=== PATIENT | female | born 1955 | race Caucasian/White ===

== ENCOUNTER 2024-04-18 11:17 | Oncology outpatient (recurring) (ONCR) | payer MEDICARE, MEDICAID, SELFPAY ==
--- NOTE | 2024-03-27 15:53 | N.ONRAD NP_ITS ---
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 Here to address postoperative radiation treatment. Radiotherapy to date: Summary > No prior radiation therapy. Chief Complaint / History of Present Illness: She noted a small mass superior left breast that grew over months from pea to tennis ball size. No sxs . Initially she could not get mammography. Mammography finally done 01/01/2024 4 cm oval mass indeterminate in nature. US recommended. US left breast 01/01/2024 4.2 cm complex cyst in left breast corresponding to mammogram. US Bx 01/21/2024 atypical papillary ductal hyperplasia. Segmental breast resection 02/13/2024 Low grade encapsulated papillary carcinoma resected with negative margins measuring 4.2 x 3.5 x 2.8 cm ER positive at 81.8%, AK positive at 71.15. Doing well post-op . No med onc assessment as yet to address adjuvant endocrine treatment. Lives independently and sharing a home with but they are living in separate parts of the house. Current Medications: aspirin, Celebrex, Emgality, Ibuprofen, levocetirizine,, lovastatin, metropolol, MS Contin, Oxycodone, Protonix, Imitrex, Zanaflex Ventolin inhaler, Allergies: Meloxicam Medical History: No history of collagen vascular disease. No previous radiation therapy. COPD, DJD, sleep apnea, deafness, hypertension, migraine QUIGLEY, dyslipidemia, Surgical History: D and C, hip arthroplasty, inner ear surgery, C section x 2 , shoulder surgery. Family History: No malignancy known in family Social History: from , they live in separate parts of a shared home. 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 No cig or alcohol use. 4 grown children. Current Complaints / Review of Systems: . Vital Signs: Performed on 03/27/2024 12:37 PM BMI - 29.957 kg/m2 (high), Height - 66 in, Weight - 185.6 lbs, Temperature - 96.6 f, Pulse - 79 /min, Respiration - 16 /min, O2 Sat - 98 %, Pain - 0, Fatigue - 0 and BP - 99/ 68 mm(hg). Physical Exam: Alert ,Edentulous with dentures. hard of hearing. No adenopathy, Arms full range of motions. No arm edema. Breast unremarkable supple, Left breast incision well healed. Performance Status: 1 Pathology: see HPI Lab: None Imaging: See HPI Impression:St II (T2 N0 M0) encapsulated papillary carcinoma. Fully excised. Recommend 40 Gy whole breast treatment in 15 fractions with no boost. Following treatment she should see med onc to consider adjuvant hormonal treatment. Discussed with patient. Plan: Signed by: 03/27/2024 3:52:56 PM <<Signature on File>> Time spent with patient: CPT Code: CPT Code:
--- NOTE | 2024-04-15 14:20 | ONCRAD TMN_ITS ---
Radiation Oncology Weekly Treatment Management Patient: Seema Rock MR#: [id number] : 1955 Attending Physician: Dr. Gaby Escalante Date of Service: 04/15/2024 Fractions: 3 out of 15 Referring Physician(s) : Diagnosis: C50.812 - Malignant neoplasm of overlapping sites of left female breast, Diagnosed 03/27/2024 (Active) Radiotherapy to date: Course: LT Breast 2023, Treatment Site: LT Breast, Ref. ID: CTV, Energy: 6X, Dose/Fx (cGy): 266.7, #Fx: 3 / 15, Dose Correction (cGy): 0, Total Dose Delivered (cGy): 800, Start Date: 04/10/2024, Elapsed Days: 5 Reason for visit: The patient is being seen today as part of their regularly scheduled weekly on treatment visits to assess for acute toxicities from radiotherapy. Review of Systems: Patient has noticed no changes Vital Signs: Performed on 04/15/2024 2:02 PM BMI - 29.892 kg/m2 (high), Height - 66 in, Weight - 185.2 lbs, Temperature - 96.2 f, Pulse - 65 /min, Respiration - 16 /min, O2 Sat - 97 %, Pain - 0, Fatigue - 2 and BP - 145/ 84 mm(hg)(high/). Physical Exam: No changes on exam Imaging: Radiation therapy imaging related to accurate target localization (i.e. KV, MV and CBCT) was reviewed. Appropriate changes, if any, were made to ensure treatment accuracy. Plan: Will continue with her treatments. She will continue to use aloe vera gel twice a day. Signed by: Dr. Gaby Escalante 04/15/2024 2:19:31 PM
== END 2024-04-18 23:59 | disposition home or self-care (01) ==
PROVIDERS: Visit Provider Radiology Radiation Oncology
DX: Z51.0 Encounter for antineoplastic radiation therapy (principal); C50.812 Malignant neoplasm of overlapping sites of left female breast
CPT/HCPCS: 77290; 77295; 77300; 77334; 77336; 77412; 77417; 99024; 99205

== ENCOUNTER 2024-05-01 13:17 | Oncology outpatient (recurring) (ONCR) | payer MEDICARE, MEDICAID, SELFPAY ==
--- NOTE | 2024-04-22 13:54 | ONCRAD TMN_ITS ---
Radiation Oncology Weekly Treatment Management Patient: Pranav Barnhart MR#: [id number] : 1955> Attending Physician: Dr. Gaby Escalante Date of Service: 04/22/2024 Fractions: 8 out of 15 Referring Physician(s) : Diagnosis: C50.812 - Malignant neoplasm of overlapping sites of left female breast, Diagnosed 03/27/2024 (Active) Radiotherapy to date: Course: LT Breast 2023, Treatment Site: LT Breast, Ref. ID: CTV, Energy: 6X, Dose/Fx (cGy): 266.7, #Fx: 8 / 15, Dose Correction (cGy): 0, Total Dose Delivered (cGy): 2,133.3, Start Date: 04/10/2024, Elapsed Days: 12 Reason for visit: The patient is being seen today as part of their regularly scheduled weekly on treatment visits to assess for acute toxicities from radiotherapy. Review of Systems: Patient is doing well other than some tenderness through the lumpectomy site Vital Signs: Performed on 04/22/2024 12:52 PM BMI - 30.151 kg/m2 (high), Height - 66 in, Weight - 186.8 lbs, Temperature - 96.2 f, Pulse - 88 /min, Respiration - 18 /min, O2 Sat - 98 %, Pain - 0, Fatigue - 5 and BP - 134/ 76 mm(hg). Physical Exam: On examination her skin is mildly erythematous. She has no moist or dry desquamation Imaging: Radiation therapy imaging related to accurate target localization (i.e. KV, MV and CBCT) was reviewed. Appropriate changes, if any, were made to ensure treatment accuracy. Plan: Will continue with her treatments as planned. She will continue to use her cream as directed. Signed by: Dr. Gaby Escalante 04/22/2024 1:53:43 PM
--- NOTE | 2024-04-29 14:12 | ONCRAD TMN_ITS ---
Radiation Oncology Weekly Treatment Management Patient: Seema Rock MR#: [id number] : 1955 Attending Physician: Dr. Gaby Escalante Date of Service: 04/29/2024 Fractions: 13 out of 15 Referring Physician(s) : Diagnosis: C50.812 - Malignant neoplasm of overlapping sites of left female breast, Diagnosed 03/27/2024 (Active) Radiotherapy to date: Course: LT Breast 2023, Treatment Site: LT Breast, Ref. ID: CTV, Energy: 6X, Dose/Fx (cGy): 266.7, #Fx: 13 / 15, Dose Correction (cGy): 0, Total Dose Delivered (cGy): 3,466.7, Start Date: 04/10/2024, Elapsed Days: 19 Reason for visit: The patient is being seen today as part of their regularly scheduled weekly on treatment visits to assess for acute toxicities from radiotherapy. Review of Systems: Patient said that last Sunday her whole breast was very sore. It was sore enough that she just went to bed and did get up to the next day. It completely resolved by that time. Vital Signs: Performed on 04/29/2024 1:32 PM Height - 66 in, Weight - 188.6 lbs, BMI - 30.441 kg/m2 (high), Temperature - 97.0 f, Pulse - 88 /min, Respiration - 17 /min, O2 Sat - 97 %, Pain - 0, Fatigue - 0 and BP - 131/ 66 mm(hg). Physical Exam: Her skin is just mildly erythematous in the inframammary fold. There is no moist or dry desquamation noted Imaging: Radiation therapy imaging related to accurate target localization (i.e. KV, MV and CBCT) was reviewed. Appropriate changes, if any, were made to ensure treatment accuracy. Plan: Will continue with her treatments. She has 2 remaining. Signed by: Dr. Gaby Escalante 04/29/2024 2:10:51 PM
--- NOTE | 2024-05-01 14:31 | N.ONRD TS_ITS ---
Radiation Oncology Treatment Summary Patient: Seema Rock MR#: [id number] : 1955 Age: 68 Sex: Female Dictated by: Dr. Gaby Escalante Date of Service: 05/01/2024 Referring Physician(s) : Diagnosis: C50.812 - Malignant neoplasm of overlapping sites of left female breast, Diagnosed 03/27/2024 (Active) Radiotherapy to Date: Course: LT Breast 2023, Treatment Site: LT Breast, Ref. ID: CTV, Energy: 6X, Dose/Fx (cGy): 266.7, #Fx: 15 / 15, Dose Correction (cGy): 0, Total Dose Delivered (cGy): 4,000, Start Date: 04/10/2024, End Date: 05/01/2024, Elapsed Days: 21 Clinical Summary: The patient tolerated RT well. Her skin developed a mild to moderate erythema. She did not develop any moist or dry desquamation. Plan: End of treatment today. Continue on the above medication until the skin reaction resolves. Follow up in one month. MO referral placed. Signed by: Dr. Gaby Escalnate>05/01/2024 2:30:17 PM <<Signature on File>>
== END 2024-05-18 23:59 | disposition home or self-care (01) ==
PROVIDERS: Visit Provider Radiology Radiation Oncology
DX: Z51.0 Encounter for antineoplastic radiation therapy (principal); C50.812 Malignant neoplasm of overlapping sites of left female breast
CPT/HCPCS: 77336; 77412; 77417; 99024

== ENCOUNTER 2024-05-20 10:16 | Oncology outpatient (recurring) (ONCR) | payer MEDICARE, MEDICAID, SELFPAY ==
[2024-05-20 11:43] LABS: Basophils % 0.6 %; Eosinophils # 0.1 10^3/uL (0.0-0.8); Eosinophils % 2.6 %; Hematocrit 42.2 % (36-47); Lymphocytes # 1.6 10^3/uL (0.8-4.8); Mean Corpuscular HGB Conc 33.9 g/dL (30-55); Mean Corpuscular Hemoglobin 31.6 pg (27-33); Mean Corpuscular Volume 93.2 fl (85-98); Mean Platelet Volume 10.2 fL (7.4-10.4); Monocytes # 0.4 10^3/uL (0.2-0.9); Monocytes % 7.2 %; Neutrophils # 2.87 10^3/uL (1.8-7.7); Neutrophils % 57.4 %; Nucleated Red Blood Cells % 0 %; Platelet Count 234 10^3/cmm (157-399); Red Blood Count 4.53 10^6/uL (3.85-5.65); Red Cell Distribution Width 12.6 % (12.1-15.1)
[2024-05-20 11:56] LABS: Alanine Aminotransferase 8 U/L (0-33); Alkaline Phosphatase 62 U/L (35-105); Anion Gap 13.8 (5-19); Aspartate Amino Transferase 21 U/L (0-32); Blood Urea Nitrogen 7 mg/dL (8-23); Calcium 9.6 mg/dL (8.5-10.5); Carbon Dioxide 28 mmol/L (22-29); Chloride 105 mmol/L (98-107); Creatinine Clr Calc Pharmacy 55.4915; Globulin 3.1 g/dL (1.3-4.6); Glomerular Filtration Rate 49.7 mL/min (90-130); Glucose 121 mg/dL (65-115); Osmolality Calculated 293 mOsm/kg (285-295); Potassium 4.8 mmol/L (3.5-5.1); Sodium 142 mmol/L (136-145); Total Bilirubin 0.5 mg/dL (0.15-1.2); Total Protein 7.1 g/dL (6.6-8.7)
== END 2024-06-18 23:59 | disposition home or self-care (01) ==
PROVIDERS: Internal Medicine; Visit Provider Radiology Radiation Oncology
DX: D05.82 Other specified type of carcinoma in situ of left breast; Z92.3 Personal history of irradiation; Z79.811 Long term (current) use of aromatase inhibitors
CPT/HCPCS: 36415; 80053; 85025; 99203

== ENCOUNTER 2024-07-10 13:03 | Oncology outpatient (recurring) (ONCR) | payer MEDICARE, MEDICAID, SELFPAY ==
--- NOTE | 2024-06-27 14:00 | XR_ITS ---
WS: [id number] SCREENING DEXA SCAN [facility] [employer] CLINICAL INFORMATION: screening COMPARISON: None. FINDINGS: The L1-L4 bone mineral density measures 1.266 g/cm2. This corresponds to a T score score of 0.7 and Z score of 1.6. Right femoral neck bone mineral density measures 0.775. This corresponds to a T score of -1.8 of and Z score of -1.1. LEFT forearm bone mineral density measures 0.75. This corresponds to a T score of -1.4 and Z score of 0.1. XR/XR DEXA axial skeleton* [id number] IMPRESSION: Osteopenia LEFT forearm and RIGHT femoral neck. Normal bone mineralization lumb ar spine.. Patient's FRAX calculated 10 year probability for major osteoporotic fracture i s 15.6% and osteoporotic hip fracture is 1.2%.
--- NOTE | 2024-07-10 13:00 | MM_ITS ---
WS: [id number] BILATERAL 3D TOMOSYNTHESIS DIGITAL DIAGNOSTIC MAMMOGRAPHY WITH CAD CLINICAL INFORMATION: post umpectomy fup HISTORY: LEFT lumpectomy. COMPARISON: 01/21/2024 TECHNIQUE: Bilateral CC, MLO, and ML views. FINDINGS: Scattered fibroglandular densities bilaterally. Interval postoperative changes lumpectomy with remova l of the previously described ovoid mass. Parenchymal scarring at the surgical site. Treatment-relate d changes LEFT breast with skin thickening. A few incidental punctate calcifications. Unremarkable RIGHT breast. MM/[place] [id number] IMPRESSION: BI-RADS: 2-Benign FOLLOW UP: 1 Year Follow-up Recommend return to annual diagnostic mammography.
== END 2024-07-19 23:55 | disposition home or self-care (01) ==
LOC: RAD 13:03 → ONCMED 16:29
PROVIDERS: PCP Radiology Radiation Oncology; Visit Provider Internal Medicine
DX: C50.919 Malignant neoplasm of unspecified site of unspecified female breast (principal); R92.322 Mammographic fibroglandular density, left breast; R23.4 Changes in skin texture; N64.59 Other signs and symptoms in breast; R92.1 Mammographic calcification found on diagnostic imaging of breast
CPT/HCPCS: 77062; 77080; 99214; G0279

== ENCOUNTER 2024-09-03 15:12 | Oncology outpatient (recurring) (ONCR) | payer MEDICARE, MEDICAID, SELFPAY ==
[2024-09-03 16:45] LABS: Thyroid Stimulating Hormone 1.57 uIU/mL (0.27-4.20)
== END 2024-09-18 23:59 | disposition home or self-care (01) ==
PROVIDERS: Nurse Practitioner Family; PCP Radiology Radiation Oncology; Visit Provider Internal Medicine Hematology & Oncology
DX: D05.82 Other specified type of carcinoma in situ of left breast (principal); Z79.811 Long term (current) use of aromatase inhibitors; R53.83 Other fatigue; M85.832 Other specified disorders of bone density and structure, left forearm; M85.88 Other specified disorders of bone density and structure, other site
CPT/HCPCS: 36415; 84443; 99214

== ENCOUNTER 2025-04-16 12:39 | Oncology outpatient (recurring) (ONCR) | payer MEDICARE, MEDICAID, SELFPAY ==
[2025-04-16 13:08] LABS: Basophils % 0.7 %; Eosinophils # 0.3 10^3/uL (0.0-0.8); Eosinophils % 4.7 %; Lymphocytes # 1.9 10^3/uL (0.8-4.8); Lymphocytes % 32.6 %; Mean Corpuscular HGB Conc 33.8 g/dL (30-55); Mean Corpuscular Hemoglobin 31.6 pg (27-33); Mean Corpuscular Volume 93.7 fl (85-98); Mean Platelet Volume 10.1 fL (7.4-10.4); Monocytes # 0.4 10^3/uL (0.2-0.9); Monocytes % 7.2 %; Neutrophils # 3.16 10^3/uL (1.8-7.7); Neutrophils % 54.5 %; Nucleated Red Blood Cells % 0 %; Platelet Count 227 10^3/cmm (157-399); Red Blood Count 4.27 10^6/uL (3.85-5.65); Red Cell Distribution Width 12.3 % (12.1-15.1)
[2025-04-16 13:36] LABS: Alanine Aminotransferase 13 U/L (0-33); Albumin Level 3.8 g/dL (3.5-5.2); Alkaline Phosphatase 57 U/L (35-105); Anion Gap 13.1 (5-19); Aspartate Amino Transferase 19 U/L (0-32); Blood Urea Nitrogen 15 mg/dL (8-23); CA 15-3 22.9 U/mL (0-25); Calcium 9.4 mg/dL (8.5-10.5); Carbon Dioxide 27 mmol/L (22-29); Chloride 103 mmol/L (98-107); Creatinine Clr Calc Pharmacy 52.6555; Glomerular Filtration Rate 44.8 mL/min (90-130); Glucose 94 mg/dL (65-115); Osmolality Calculated 289 mOsm/kg (285-295); Potassium 4.1 mmol/L (3.5-5.1); Sodium 139 mmol/L (136-145); Thyroid Stimulating Hormone 2.56 uIU/mL (0.27-4.20); Total Bilirubin 0.3 mg/dL (0.15-1.2); Total Protein 6.8 g/dL (6.6-8.7)
== END 2025-04-18 23:59 | disposition home or self-care (01) ==
PROVIDERS: Nurse Practitioner; PCP Radiology Radiation Oncology; Visit Provider Internal Medicine Medical Oncology
DX: Z53.9 Procedure and treatment not carried out, unspecified reason (principal); D05.82 Other specified type of carcinoma in situ of left breast; Z17.0 Estrogen receptor positive status [ER+]; Z79.811 Long term (current) use of aromatase inhibitors; N64.4 Mastodynia
CPT/HCPCS: 36415; 80053; 84443; 85025; 86300; 99214

== ENCOUNTER 2025-08-12 14:51 | Oncology outpatient (recurring) (ONCR) | payer MEDICARE, MEDICAID, SELFPAY | END 2025-08-18 23:59 | disposition home or self-care (01) | PROVIDERS: PCP Radiology Radiation Oncology; Visit Provider Internal Medicine Medical Oncology | DX: D05.82 Other specified type of carcinoma in situ of left breast (principal); R63.5 Abnormal weight gain; R60.0 Localized edema; N64.4 Mastodynia; K76.0 Fatty (change of) liver, not elsewhere classified; Z92.3 Personal history of irradiation; Z79.818 Long term (current) use of other agents affecting estrogen receptors and estrogen levels | CPT/HCPCS: 99214 ==